=== PATIENT | female | born 1970 | race Two or more races ===

== ENCOUNTER 2021-10-28 08:27 | Outpatient (CLI) | payer OTHER | END 2021-10-28 08:32 | disposition home or self-care (01) | LOC: LAB 08:27 | DX: N95.1 Menopausal and female climacteric states (principal); K76.0 Fatty (change of) liver, not elsewhere classified; E78.2 Mixed hyperlipidemia; E03.8 Other specified hypothyroidism; E55.9 Vitamin D deficiency, unspecified; M81.0 Age-related osteoporosis without current pathological fracture ==

== ENCOUNTER 2022-03-08 13:04 | Emergency (ER) | payer OTHER ==
[~2022-03-08] VITALS: Ht 160 cm; Wt 81.6 kg
== END 2022-03-08 15:48 | disposition home or self-care (01) ==
LOC: ER 13:04
DX: J40 Bronchitis, not specified as acute or chronic (principal); R07.89 Other chest pain; Z20.822 Contact with and (suspected) exposure to COVID-19